=== PATIENT | female | born 2000 | race American Indian/Alaskan Native ===

== ENCOUNTER 2020-06-21 21:11 | Outpatient (CLI) | payer MEDICAID, OTHER ==
[2020-06-21] MEDS ORDERED: LACTATED RINGERS 1,000 ML IV ONE (21:39)
[2020-06-21 22:06] LABS: Bilirubin,Urine NEG (Negative); Blood,Urine NEG (Negative); Color,Urine Yellow (Yellow); Mucus,Urine FEW /HPF; Urobilinogen,Urine < 2.0 mg/dL (<2.0); WBC,Urine < 1.0 /HPF (0.0-6.0)
[2020-06-21 22:13] LABS: Amphetamine Screen,Urine Negative; Benzodiazepines Screen,Urine Negative; Cannabinoid Screen,Urine Negative; Cocaine Screen,Urine Negative; Methadone Screen,Urine Negative; Opiate Screen,Urine Negative
[2020-06-21 22:14] VITALS: BP 119/58
== END 2020-06-21 22:59 | disposition home or self-care (01) ==
LOC: TRG 21:11 → APU 21:33 → TRG 22:59
PROVIDERS: ATTEND Obstetrics & Gynecology
DX: O42.913 Preterm premature rupture of membranes, unspecified as to length of time between rupture and onset of labor, third trimester (principal); Z3A.31 31 weeks gestation of pregnancy
CPT/HCPCS: 36415; 80307; 81001; 84112

== ENCOUNTER 2020-09-02 08:55 | Inpatient (IN) | payer OTHER ==
[2020-09-02] MEDS ORDERED: MINERAL OIL 30 ML ORAL LIQD PO PRN (10:30)
[2020-09-02] MEDS ORDERED: METHYLERGONOVINE MALEATE 0.2 MG/ML VIAL IM PRN (11:00)
[2020-09-02] MEDS ORDERED: fentaNYL 100 MCG/2 ML INJ IV PRN (11:00)
[2020-09-02] MEDS ORDERED: TERBUTALINE 1 MG/1 ML INJ SUB-Q PRN (11:00)
[2020-09-02] MEDS ORDERED: ePHEDrine SULFATE 50 MG/1 ML INJ IV PRN ×2 (11:00→21:02)
[2020-09-02] MEDS ORDERED: NALOXONE 0.4 MG/1 ML INJ IV PRN (11:00)
[2020-09-02] MEDS ORDERED: miSOPROStol 200 MCG TAB PR PRN (11:00)
[2020-09-02] MEDS ORDERED: OXYTOCIN 10 UNIT/1 ML INJ IM PRN (11:00)
[2020-09-02] MEDS ORDERED: AMPICILLIN/NS 2 GM/100 ML 2 GM/100 ML BAG IV SCH (11:00)
[2020-09-02] MEDS ORDERED: LOPERAMIDE 2 MG CAP PO PRN (11:00)
[2020-09-02] MEDS ORDERED: OXYTOCIN DRIP 30 UNITS/500 ML BAG IV SCH (11:00)
[2020-09-02] MEDS ORDERED: DINOPROSTONE 10 MG VAG SUPP VG SCH (11:00)
[2020-09-02] MEDS ORDERED: ONDANSETRON 4 MG/2 ML INJ IV PRN (11:00)
[2020-09-02] MEDS ORDERED: LIDOCAINE (2%) 20 MG/1 ML VIAL 20 ML MDV INFILTRATI SCH (11:00)
[2020-09-02] MEDS ORDERED: BUTORPHANOL 2 MG/1 ML INJ IV PRN (11:00)
[2020-09-02] MEDS ORDERED: CARBOPROST TROMETHAMINE 250 MCG/1 ML INJ IM PRN (11:00)
[2020-09-02 11:05] LABS: Hematocrit 34.7 % (30.3-42.9); Hemoglobin 11.6 gm/dl (10.1-14.3); Mean Corpuscular HGB Conc 33 % (30-34); Mean Corpuscular Volume 86 fl (79-97); Platelet Count 242 K/mm3 (140-440); Red Blood Count 4.03 M/mm3 (3.65-5.03); Red Cell Distribution Width 13.9 % (13.2-15.2)
[2020-09-02] MEDS: LACTATED RINGERS 1,000 ML IV SCH ×2 (16:09→19:28)
--- NOTE | 2020-09-02 19:04 | History and Physical Report ---
History of Present Illness Date of examination: 09/02/20 Date of admission: 09/02/20 08:55 Chief complaint: I am here to be induced. History of present illness: Patient is a 20-year-old 1 para 0 with EDC 08/23/2020. She presents today for induction of labor secondary to postdates. Her course has been uncomplicated. She started care with [facility] at 12 weeks. All labs have been negative. She is GBS positive Past History Past Medical History: no pertinent history Past Surgical History: no surgical history Family/Genetic History: none Social history: single - Obstetrical History Expected Date of Delivery: 08/23/20 Actual Gestation: 41 Week(s) 3 Day(s) : 1 Medications and Allergies Allergies Allergy/AdvReac Type Severity Reaction Status Date / Time No Known Allergies Allergy Verified 06/21/20 21:35 Home Medications Medication Instructions Recorded Confirmed Last Taken Type One Daily Tablet 1 tab PO DAILY 09/02/20 09/02/20 09/02/20 History Active Meds: Active Medications Butorphanol Tartrate (Butorphanol 2 Mg/1 Ml Inj) 2 mg IV Q2H PRN PRN Reason: Pain , Severe (7-10) Last Admin: 09/02/20 15:32 Dose: 2 mg Documented by: Carboprost Tromethamine (Carboprost Tromethamine 250 Mcg/1 Ml Inj) 250 mcg IM ONCE PRN PRN Reason: Uterine Bleeding Dinoprostone (Dinoprostone 10 Mg Vag Supp) 10 mg VG ONCE MAGED Stop: 09/03/20 10:59 Last Admin: 09/02/20 11:52 Dose: 10 mg Documented by: Ephedrine Sulfate (Ephedrine Sulfate 50 Mg/1 Ml Inj) 10 mg IV Q2M PRN PRN Reason: Hypotension Fentanyl (Fentanyl 100 Mcg/2 Ml Inj) 100 mcg IV Q2H PRN PRN Reason: Pain,Severe (7-10) LABOR PAIN Lactated Ringer's (Lactated Ringers) 1,000 mls @ 125 mls/hr IV DIRECT MAGED Last Admin: 09/02/20 16:09 Dose: 125 mls/hr Documented by: Oxytocin/Sodium Chloride (Pitocin/Ns 30 Unit/500ml) 30 units in 500 mls @ 40 mls/hr IV TITR MAGED; Protocol Ampicillin Sodium (Ampicillin/Ns 1 Gm/50 Ml) 1 gm in 50 mls @ 100 mls/hr IV Q4H MAGED; Protocol Lidocaine (Lidocaine (2%) 20 Mg/1 Ml Vial 20 Ml Mdv) 20 ml INFILTRATI ONCE MAGED Stop: 09/03/20 10:59 Loperamide HCl (Loperamide 2 Mg Cap) 2 mg PO ONCE PRN PRN Reason: give with Hemabate Methylergonovine Maleate (Methylergonovine Maleate 0.2 Mg/Ml Vial) 0.2 mg IM ONCE PRN PRN Reason: Uterine Bleeding Mineral Oil (Mineral Oil 30 Ml Oral Liqd) 30 ml PO QHS PRN PRN Reason: Constipation Misoprostol (Misoprostol 200 Mcg Tab) 800 mcg IN ONCE PRN PRN Reason: Uterine Bleeding Naloxone HCl (Naloxone 0.4 Mg/1 Ml Inj) 0.1 mg IV Q2MIN PRN PRN Reason: Res Rate </= 8 or 02 SAT < 92% Ondansetron HCl (Ondansetron 4 Mg/2 Ml Inj) 4 mg IV Q8H PRN PRN Reason: Nausea And Vomiting Oxytocin (Oxytocin 10 Unit/1 Ml Inj) 10 unit IM ONCE PRN PRN Reason: Uterine Bleeding Terbutaline Sulfate (Terbutaline 1 Mg/1 Ml Inj) 0.25 mg SUB-Q ONCE PRN PRN Reason: Hyperstimulation/Hypertonicity Review of Systems All systems: negative Genitourinary: pelvic pain - Vital Signs Vital signs: Vital Signs Pulse BP Pulse Ox 101 H 117/62 98 09/02/20 09:27 09/02/20 09:27 09/02/20 09:27 Temp Pulse Resp BP Pulse Ox 98.8 F 83 18 136/83 98 09/02/20 16:23 09/02/20 18:57 09/02/20 16:23 09/02/20 18:11 09/02/20 18:57 - Physical Exam Breasts: Cardiovascular: Regular rate, Normal S1, Normal S2 Lungs: Positive: Clear to auscultation, Normal air movement Abdomen: Positive: normal appearance, soft, normal bowel sounds. Negative: distention, tenderness Genitourinary (Female): Positive: normal external genitalia, normal perenium Vulva: both: normal Vagina: Positive: normal moisture. Negative: discharge Cervix: Negative: lesion, discharge Uterus: Positive: normal size, normal contour Adnexa: both: normal Anus/Rectum: Positive: normal perianal skin, heme negative. Negative: rectal mass, hemorrhoids Extremities: Deep Tendon Reflex Grade: Normal +2 - Obstetrical FHR: auscultation normal Cervical Dilatation: 0 Cervical Effacement Percentage: 30 station: -3 Uterine Contraction Pattern: Absent Results Result Diagrams: 09/02/20 09:57 All other labs normal. Assessment and Plan IUP at 41 and 3 here for induction of labor. Admit for Cervidil. When removed we will begin Pitocin. Will treat with ampicillin for GBS status. Anticipate .
--- NOTE | 2020-09-02 21:00 | Anesthesia Consultation ---
Anesthesia Consult and Med Hx Date of service: 09/02/20 - Airway Anesthetic Teeth Evaluation: Good ROM Head & Neck: Adequate Mental/Hyoid Distance: Adequate Mallampati Class: Class II Intubation Access Assessment: Probably Good - Pulmonary Exam CTA: Yes - Cardiac Exam Cardiac Exam: RRR - Pre-Operative Health Status ASA Pre-Surgery Classification: ASA3 Proposed Anesthetic Plan: Epidural - Pulmonary Hx Smoking: Yes Hx Asthma: No COPD: No Hx Pneumonia: No - Cardiovascular System Hx Hypertension: No - Central Nervous System Hx Seizures: No Hx Psychiatric Problems: No - Endocrine Hx Renal Disease: No Hx End Stage Renal Disease: No Hx Hypothyroidism: No Hx Hyperthyroidism: No - Hematic Hx Anemia: No Hx Sickle Cell Disease: No - Other Systems Hx Alcohol Use: No Hx Obesity: Yes
[2020-09-02] MEDS ORDERED: NALOXONE 2 MG/2 ML INJ IV PRN (21:02)
--- NOTE | 2020-09-02 21:02 | Progress Note ---
Labor Epidural - Labor Epidural Start Time: 20:44 Stop Time: 20:50 Performed by:: BRYSON RIVAS Procedure: Patient is requesting epidural for labor pain. H&P, and labs reviewed. Procedure explained, questions answered, consent obtained. Patient in sitting position with blood pressure cuff and pulse ox on and working. Timeout performed immediately before start of procedure. Sterile chlorahexadine 0.5% prep/drape. 3 mL 1% lidocaine skin wheal at L[3]-L[4]. 18-gauge morphCARDtead epidural needle advanced to [id number] with saline at 9 cm. 27-gauge spinal needle advanced until clear, free-flowing CSF. Intrathecal dexmedetomidine [5] mcg administered and needle removed. Epidural catheter advanced to 15 cm, positive aspiration for blood, L2-3 positive dawn saline 9 cm, catheter advanced to 15 cm, negative aspiration for blood and csf, negative test dose 3 ml 1.5% lidocaine with epinephrine. Sterile steri-strips and tegaderm applied, followed by tape reinforcement. Patient tolerated procedure well.
[2020-09-02] MEDS: AMPICILLIN/NS 1 GM/50 ML 1 GM/50 ML BAG IV SCH (21:20)
[2020-09-02] MEDS: fentaNYL-BUPIV 2 MCG/ML-0.125% 200 MCG/100 ML BAG EPIDURAL SCH (22:07)
[2020-09-03] MEDS: AMPICILLIN/NS 1 GM/50 ML 1 GM/50 ML BAG IV SCH ×3 (04:49→13:18)
[2020-09-03] MEDS: fentaNYL-BUPIV 2 MCG/ML-0.125% 200 MCG/100 ML BAG EPIDURAL SCH ×2 (06:27→13:55)
--- NOTE | 2020-09-03 08:14 | Progress Note ---
Subjective - Subjective Date of service: 09/03/20 Interval history: AROM clear fluid cervix 5cm/100%/-2 FHT Category 1 [place]:Q5 minutes Maternal/ well being reassuring Dwaine Moreland MD Objective - Vital Signs Vital Signs: Vital Signs - 12hr 09/02/20 09/02/20 09/02/20 20:17 20:22 20:27 Temperature 98.8 F Pulse Rate 81 78 81 Respiratory 16 Rate Blood Pressure Blood Pressure 105/56 [Right] O2 Sat by Pulse 98 99 100 Oximetry 09/02/20 09/02/20 09/02/20 20:28 20:32 20:37 Temperature Pulse Rate 65 81 90 Respiratory Rate Blood Pressure Blood Pressure [Right] O2 Sat by Pulse 86 98 98 Oximetry 09/02/20 09/02/20 09/02/20 20:39 20:42 20:46 Temperature Pulse Rate 100 H 90 73 Respiratory Rate Blood Pressure Blood Pressure [Right] O2 Sat by Pulse 90 99 90 Oximetry 09/02/20 09/02/20 09/02/20 20:47 20:50 20:52 Temperature Pulse Rate 94 H 85 83 Respiratory Rate Blood Pressure 144/88 Blood Pressure [Right] O2 Sat by Pulse 100 99 Oximetry 09/02/20 09/02/20 09/02/20 20:53 20:55 20:57 Temperature Pulse Rate 85 84 Respiratory Rate Blood Pressure 140/65 139/73 Blood Pressure [Right] O2 Sat by Pulse 98 Oximetry 09/02/20 09/02/20 09/02/20 21:02 21:05 21:07 Temperature Pulse Rate 78 80 78 Respiratory Rate Blood Pressure 124/57 130/61 Blood Pressure [Right] O2 Sat by Pulse 98 99 Oximetry 09/02/20 09/02/20 09/02/20 21:08 21:11 21:12 Temperature Pulse Rate 75 72 68 Respiratory Rate Blood Pressure 106/66 110/66 Blood Pressure [Right] O2 Sat by Pulse 98 Oximetry 09/02/20 09/02/20 09/02/20 21:14 21:17 21:20 Temperature Pulse Rate 72 79 70 Respiratory Rate Blood Pressure 118/58 133/58 Blood Pressure [Right] O2 Sat by Pulse 99 Oximetry 09/02/20 09/02/20 09/02/20 21:22 21:25 21:27 Temperature Pulse Rate 72 75 78 Respiratory Rate Blood Pressure 132/60 Blood Pressure [Right] O2 Sat by Pulse 98 98 Oximetry 09/02/20 09/02/20 09/02/20 21:32 21:37 21:42 Temperature Pulse Rate 77 70 71 Respiratory Rate Blood Pressure Blood Pressure [Right] O2 Sat by Pulse 99 98 99 Oximetry 09/02/20 09/02/20 09/02/20 21:47 21:52 21:55 Temperature Pulse Rate 74 70 69 Respiratory Rate Blood Pressure 125/65 Blood Pressure [Right] O2 Sat by Pulse 98 99 Oximetry 09/02/20 09/02/20 09/02/20 21:57 22:02 22:07 Temperature Pulse Rate 68 63 70 Respiratory Rate Blood Pressure Blood Pressure [Right] O2 Sat by Pulse 100 99 98 Oximetry 09/02/20 09/02/20 09/02/20 22:12 22:17 22:22 Temperature Pulse Rate 71 62 63 Respiratory Rate Blood Pressure Blood Pressure [Right] O2 Sat by Pulse 97 100 99 Oximetry 09/02/20 09/02/20 09/02/20 22:23 22:27 22:32 Temperature Pulse Rate 61 64 68 Respiratory Rate Blood Pressure 129/77 Blood Pressure [Right] O2 Sat by Pulse 99 99 Oximetry 09/02/20 09/02/20 09/02/20 22:37 22:42 22:47 Temperature Pulse Rate 63 64 62 Respiratory Rate Blood Pressure Blood Pressure [Right] O2 Sat by Pulse 99 99 100 Oximetry 09/02/20 09/02/20 09/02/20 22:52 22:53 22:57 Temperature Pulse Rate 66 68 61 Respiratory Rate Blood Pressure 123/62 Blood Pressure [Right] O2 Sat by Pulse 100 100 Oximetry 09/02/20 09/02/20 09/02/20 23:02 23:07 23:12 Temperature Pulse Rate 61 68 65 Respiratory Rate Blood Pressure Blood Pressure [Right] O2 Sat by Pulse 100 99 100 Oximetry 09/02/20 09/02/20 09/02/20 23:17 23:22 23:23 Temperature Pulse Rate 61 70 68 Respiratory Rate Blood Pressure 114/61 Blood Pressure [Right] O2 Sat by Pulse 100 100 Oximetry 09/02/20 09/02/20 09/02/20 23:27 23:32 23:37 Temperature Pulse Rate 64 68 68 Respiratory Rate Blood Pressure Blood Pressure [Right] O2 Sat by Pulse 100 100 100 Oximetry 09/02/20 09/02/20 09/02/20 23:42 23:47 23:52 Temperature Pulse Rate 64 70 65 Respiratory Rate Blood Pressure Blood Pressure [Right] O2 Sat by Pulse 98 99 99 Oximetry 09/02/20 09/02/20 09/03/20 23:54 23:57 00:02 Temperature Pulse Rate 63 63 81 Respiratory Rate Blood Pressure 119/67 Blood Pressure [Right] O2 Sat by Pulse 99 99 Oximetry 09/03/20 09/03/20 09/03/20 00:07 00:12 00:17 Temperature Pulse Rate 68 94 H 72 Respiratory Rate Blood Pressure Blood Pressure [Right] O2 Sat by Pulse 100 98 99 Oximetry 09/03/20 09/03/20 09/03/20 00:22 00:23 00:27 Temperature Pulse Rate 95 H 87 95 H Respiratory Rate Blood Pressure 126/77 Blood Pressure [Right] O2 Sat by Pulse 100 98 Oximetry 09/03/20 09/03/20 09/03/20 00:32 00:37 00:42 Temperature Pulse Rate 97 H 84 89 Respiratory Rate Blood Pressure Blood Pressure [Right] O2 Sat by Pulse 99 99 100 Oximetry 09/03/20 09/03/20 09/03/20 00:47 00:52 00:55 Temperature Pulse Rate 94 H 85 93 H Respiratory Rate Blood Pressure Blood Pressure [Right] O2 Sat by Pulse 99 98 92 Oximetry 09/03/20 09/03/20 09/03/20 00:57 01:02 01:07 Temperature Pulse Rate 94 H 78 73 Respiratory Rate Blood Pressure Blood Pressure [Right] O2 Sat by Pulse 99 98 98 Oximetry 09/03/20 09/03/20 09/03/20 01:12 01:17 01:22 Temperature Pulse Rate 85 79 84 Respiratory Rate Blood Pressure Blood Pressure [Right] O2 Sat by Pulse 98 99 97 Oximetry 09/03/20 09/03/20 09/03/20 01:23 01:27 01:32 Temperature Pulse Rate 79 77 82 Respiratory Rate Blood Pressure 134/79 Blood Pressure [Right] O2 Sat by Pulse 99 99 Oximetry 09/03/20 09/03/20 09/03/20 01:37 01:42 01:47 Temperature Pulse Rate 69 81 74 Respiratory Rate Blood Pressure Blood Pressure [Right] O2 Sat by Pulse 99 99 98 Oximetry 09/03/20 09/03/20 09/03/20 01:52 01:54 01:57 Temperature Pulse Rate 81 70 77 Respiratory Rate Blood Pressure 143/92 Blood Pressure [Right] O2 Sat by Pulse 98 100 Oximetry 09/03/20 09/03/20 09/03/20 02:02 02:07 02:12 Temperature Pulse Rate 85 78 80 Respiratory Rate Blood Pressure Blood Pressure [Right] O2 Sat by Pulse 100 99 100 Oximetry 09/03/20 09/03/20 09/03/20 02:17 02:22 02:24 Temperature Pulse Rate 72 69 85 Respiratory Rate Blood Pressure 135/78 Blood Pressure [Right] O2 Sat by Pulse 99 99 Oximetry 09/03/20 09/03/20 09/03/20 02:27 02:32 02:37 Temperature Pulse Rate 78 73 77 Respiratory Rate Blood Pressure Blood Pressure [Right] O2 Sat by Pulse 99 100 99 Oximetry 09/03/20 09/03/20 09/03/20 02:42 02:47 02:52 Temperature Pulse Rate 78 82 75 Respiratory Rate Blood Pressure Blood Pressure [Right] O2 Sat by Pulse 99 99 100 Oximetry 09/03/20 09/03/20 09/03/20 02:53 02:57 03:02 Temperature 98.2 F Pulse Rate 77 79 75 Respiratory Rate Blood Pressure 134/82 Blood Pressure [Right] O2 Sat by Pulse 100 99 Oximetry 09/03/20 09/03/20 09/03/20 03:07 03:12 03:17 Temperature Pulse Rate 79 74 85 Respiratory Rate Blood Pressure Blood Pressure [Right] O2 Sat by Pulse 99 99 100 Oximetry 09/03/20 09/03/20 09/03/20 03:22 03:24 03:27 Temperature Pulse Rate 75 74 75 Respiratory Rate Blood Pressure 137/80 Blood Pressure [Right] O2 Sat by Pulse 99 99 Oximetry 09/03/20 09/03/20 09/03/20 03:32 03:37 03:42 Temperature Pulse Rate 73 73 75 Respiratory Rate Blood Pressure Blood Pressure [Right] O2 Sat by Pulse 100 99 100 Oximetry 09/03/20 09/03/20 09/03/20 03:47 03:52 03:53 Temperature Pulse Rate 78 78 82 Respiratory Rate Blood Pressure 149/92 Blood Pressure [Right] O2 Sat by Pulse 99 100 Oximetry 06/09/03/20 09/03/20 03:57 04:02 04:07 Temperature Pulse Rate 80 76 78 Respiratory Rate Blood Pressure Blood Pressure [Right] O2 Sat by Pulse 100 100 99 Oximetry 09/03/20 09/03/20 09/03/20 04:12 04:17 04:22 Temperature Pulse Rate 75 77 67 Respiratory Rate Blood Pressure Blood Pressure [Right] O2 Sat by Pulse 100 100 100 Oximetry 09/03/20 09/03/20 09/03/20 04:23 04:27 04:32 Temperature Pulse Rate 80 77 72 Respiratory Rate Blood Pressure 138/81 Blood Pressure [Right] O2 Sat by Pulse 97 98 Oximetry 09/03/20 09/03/20 09/03/20 04:37 04:42 04:47 Temperature Pulse Rate 72 74 71 Respiratory Rate Blood Pressure Blood Pressure [Right] O2 Sat by Pulse 99 98 99 Oximetry 09/03/20 09/03/20 09/03/20 04:52 04:54 04:57 Temperature Pulse Rate 80 90 77 Respiratory Rate Blood Pressure 125/89 Blood Pressure [Right] O2 Sat by Pulse 99 98 Oximetry 09/03/20 09/03/20 09/03/20 05:02 05:07 05:12 Temperature Pulse Rate 79 77 74 Respiratory Rate Blood Pressure Blood Pressure [Right] O2 Sat by Pulse 98 99 97 Oximetry 09/03/20 09/03/20 09/03/20 05:17 05:22 05:24 Temperature Pulse Rate 85 68 71 Respiratory Rate Blood Pressure 128/76 Blood Pressure [Right] O2 Sat by Pulse 97 98 Oximetry 09/03/20 09/03/20 09/03/20 05:27 05:32 05:37 Temperature Pulse Rate 74 74 71 Respiratory Rate Blood Pressure Blood Pressure [Right] O2 Sat by Pulse 99 98 98 Oximetry 09/03/20 09/03/20 09/03/20 05:42 05:47 05:52 Temperature Pulse Rate 74 76 84 Respiratory Rate Blood Pressure Blood Pressure [Right] O2 Sat by Pulse 98 98 98 Oximetry 09/03/20 09/03/20 09/03/20 05:55 05:57 06:02 Temperature Pulse Rate 86 74 71 Respiratory Rate Blood Pressure 131/91 Blood Pressure [Right] O2 Sat by Pulse 99 98 Oximetry 09/03/20 09/03/20 09/03/20 06:07 06:12 06:17 Temperature Pulse Rate 69 71 72 Respiratory Rate Blood Pressure Blood Pressure [Right] O2 Sat by Pulse 98 97 98 Oximetry 09/03/20 09/03/20 09/03/20 06:22 06:24 06:27 Temperature Pulse Rate 88 72 83 Respiratory Rate Blood Pressure 127/72 Blood Pressure [Right] O2 Sat by Pulse 98 99 Oximetry 09/03/20 09/03/20 09/03/20 06:32 06:37 06:42 Temperature Pulse Rate 76 73 71 Respiratory Rate Blood Pressure Blood Pressure [Right] O2 Sat by Pulse 100 100 99 Oximetry 09/03/20 09/03/20 09/03/20 06:47 06:52 06:54 Temperature Pulse Rate 69 68 73 Respiratory Rate Blood Pressure 125/69 Blood Pressure [Right] O2 Sat by Pulse 100 99 Oximetry 09/03/20 09/03/20 09/03/20 06:57 07:02 07:07 Temperature Pulse Rate 77 74 72 Respiratory Rate Blood Pressure Blood Pressure [Right] O2 Sat by Pulse 99 99 99 Oximetry 09/03/20 09/03/20 09/03/20 07:12 07:17 07:22 Temperature Pulse Rate 79 76 85 Respiratory Rate Blood Pressure Blood Pressure [Right] O2 Sat by Pulse 99 99 99 Oximetry 09/03/20 09/03/20 09/03/20 07:24 07:27 07:32 Temperature Pulse Rate 79 76 77 Respiratory Rate Blood Pressure 134/80 Blood Pressure [Right] O2 Sat by Pulse 99 99 Oximetry 09/03/20 09/03/20 09/03/20 07:37 07:42 07:47 Temperature Pulse Rate 78 71 79 Respiratory Rate Blood Pressure Blood Pressure [Right] O2 Sat by Pulse 99 98 99 Oximetry 09/03/20 09/03/20 09/03/20 07:52 07:53 07:57 Temperature Pulse Rate 77 75 76 Respiratory Rate Blood Pressure 131/82 Blood Pressure [Right] O2 Sat by Pulse 99 99 Oximetry 09/03/20 09/03/20 08:02 08:07 Temperature Pulse Rate 81 88 Respiratory Rate Blood Pressure Blood Pressure [Right] O2 Sat by Pulse 97 97 Oximetry - Labs Labs: Laboratory Results - last 24 hr 09/02/20 09/02/20 09/02/20 09:20 09:57 09:57 WBC 6.8 RBC 4.03 Hgb 11.6 Hct 34.7 MCV 86 MCH 29 MCHC 33 RDW 13.9 Plt Count 242 Syphilis IgG Antibody Coronavirus (PCR) Negative Blood Type O POSITIVE Antibody Screen Negative 09/02/20 09:57 WBC RBC Hgb Hct MCV MCH MCHC RDW Plt Count Syphilis IgG Antibody Nonreactive Coronavirus (PCR) Blood Type Antibody Screen
[2020-09-03] MEDS ORDERED: OXYTOCIN DRIP 30 UNITS/500 ML BAG IV SCH (10:00)
[2020-09-03] MEDS: LACTATED RINGERS 1,000 ML IV SCH (11:22)
[2020-09-03] MEDS ORDERED: LIDOCAINE (2%) 20 MG/1 ML VIAL 20 ML MDV INFILTRATI ONE (17:04)
[2020-09-03] MEDS ORDERED: ceFAZolin/Water 2 GM/20 ML 2 GM/20 ML SYRINGE IV ONE (17:08)
[2020-09-03] MEDS ORDERED: MORPHINE 2 MG/1 ML INJ ONE (17:23)
[2020-09-03] MEDS ORDERED: MORPHINE 2 MG/1 ML INJ IV ONE (17:24)
[2020-09-03] MEDS ORDERED: LIDOCAINE MPF (2%) 20 MG/1 ML VIAL 5 ML ONE ×3 (17:35→18:28)
--- NOTE | 2020-09-03 17:47 | Anesthesia Day of Surgery ---
Anesthesia Day of Surgery - Day of Surgery Patient Examined: Yes Patient H&P Reviewed: Yes Patient is NPO: Yes Beta Blockers: No Cardiac Clearance: No Pulmonary Clearance: No Keon's Test: N/A
[2020-09-03] MEDS ORDERED: SODIUM CHLORIDE 0.9% 500 ML 500 ML IV NR (17:49)
--- NOTE | 2020-09-03 17:49 | Procedure Note ---
OB Delivery Note - Delivery Date of Delivery: 09/03/20 Surgeon: KENNETH SALINAS Estimated blood loss: other (600ml) - Vaginal Delivery position: OA Intrapartum events: other(please specify) (fourth degree episiotomy with extension to posterior fornix) Delivery monitor: external FHT, external uterine Route of delivery: Delivery placenta: manual Delivery cord: 3 umbilical vessels Episiotomy: midline Delivery laceration: 4th degree Delivery repair: other (repair in OR under spinal and local anesthesia) Delivery comments: Patient pushed to deliver a viable male over a midline episiotomy with a fourth degree extension. Position direct OP, no nuchal cord. The remainder of the delivery was atraumatic with spontaneous cry at delivery. Baby placed on maternal abdomen with delayed cord clamping around 60 seconds. Cord clamped and cut and baby handed to waiting NICU staff. Intact placenta with three-vessel cord delivered manually. Manual extraction second to acute blood loss from vaginal laceration. Attempt of fourth degree repair in the room was unsuccessful second to poor lighting and patient discomfort. Anesthesia was notified and patient taken to the OR for repair see brief op n ote. All sponge needle instrument counts were correct x2. Total EBL during delivery 600 mL. Weight 4129gms 8/9 Dwaine Salinas MD
[2020-09-03] MEDS ORDERED: ceFAZolin/STERILE WATER 2 GM/20 ML SYRINGE IV NR (18:00)
--- NOTE | 2020-09-03 19:00 | Post Operative Note ---
Pre-op diagnosis: Midline Episiotomy with fourth degree extension Post-op diagnosis: same Findings: Multiple superficial vaginal lacerations with a midline episiotomy with fourth degree extension requiring repair. Procedure: Repair of fourth degree vaginal laceration with 2-0 Vicryl on a CTX needle. The apex of the laceration was identified and the laceration repaired in layers. The perineum closed with interrupted sutures of 2-0 Vicryl. The rectum confirmed patent at the conclusion of the procedure. Patient remained hemodynamically stable throughout with EBL 150 mL in the OR. Sponge needle and instrument counts are correct x2. Mom to the floor for recovery. Anesthesia: local, epidural Surgeon: KENNETH SALINAS Estimated blood loss: other (150ml) Pathology: none Condition: stable Disposition: floor
[2020-09-03] MEDS ORDERED: ONDANSETRON 4 MG/2 ML INJ IV PRN (19:34)
[2020-09-03] MEDS ORDERED: PROMETHAZINE 25 MG RECT SUPP PR PRN (19:34)
[2020-09-03] MEDS ORDERED: WITCH HAZEL/ GLYCERIN PAD TP PRN (19:34)
[2020-09-03] MEDS ORDERED: PROMETHAZINE 25 MG TAB PO PRN (19:34)
[2020-09-03] MEDS ORDERED: oxyCODONE /ACETAMINOPHEN 5-325MG TAB PO PRN (19:34)
[2020-09-03] MEDS ORDERED: diphenhydrAMINE 25 MG CAP PO PRN (19:34)
[2020-09-03] MEDS ORDERED: KETOROLAC 30 MG/1 ML INJ IV PRN (19:34)
[2020-09-03] MEDS ORDERED: ACETAMINOPHEN 325 MG TAB PO PRN (19:34)
[2020-09-03] MEDS ORDERED: MAGNESIUM HYDROXIDE (MOM) ORAL LIQD UDC PO PRN (19:34)
[2020-09-03] MEDS ORDERED: LANOLIN/ZINC/DIMETHICONE (LANSINOH) 7 GM TP PRN (19:34)
--- NOTE | 2020-09-03 21:15 | Post Anesthesia Evaluation ---
- Post Anesthesia Evaluation Patient Participated: Yes Airway Patent: Yes Stable Respiratory Function: Yes Nausea/Vomiting: No Temp > 96.8F: Yes Pain Manageable: Yes Adequeate Hydration: Yes Anesthesia Complications: No Block Receding Appropriately: Yes Patient on Ventilator: No
[2020-09-03] MEDS: HYDROcodone/ACETAMINOPHEN 5-325 MG TAB PO PRN (23:49)
[2020-09-04] MEDS: IBUPROFEN 600 MG TAB PO SCH ×3 (05:07→18:16)
[2020-09-04 09:43] LABS: Hematocrit 22.6 % (30.3-42.9); Hemoglobin 7.3 gm/dl (10.1-14.3)
[2020-09-04] MEDS: LACTATED RINGERS 1,000 ML IV SCH (11:40)
--- NOTE | 2020-09-04 18:12 | Progress Note ---
Assessment and Plan A: PPD#1 s/p at term 4th degree laceration Morbid Obesity P: Routine care Monitor anemia Stool softener scheduled Subjective - Subjective Date of service: 09/04/20 Principal diagnosis: s/p at term, 4th degree laceration repair Interval history: Pt feeling well. Receiving one unit of PRBCs presently. No complaints. Patient reports: appetite normal, voiding normally, pain well controlled, ambulating normally (minimally ) Ruby: doing well Objective - Vital Signs Latest vital signs: Vital Signs Temp Pulse Resp BP BP BP Pulse Ox 09/04/20 17:11 105 H 17 134/66 98 09/04/20 16:36 98.0 F 87 17 132/71 132/71 97 09/04/20 16:00 99 H 16 106/59 100 09/04/20 15:47 107 H 16 120/61 98 09/04/20 15:36 105 H 16 113/59 97 09/04/20 11:57 98.2 F 87 16 121/67 99 09/04/20 08:05 97.9 F 89 16 112/61 97 09/04/20 05:03 98.5 F 109 H 20 97/60 100 09/03/20 23:46 99.4 F 115 H 20 109/58 100 09/03/20 21:35 99.2 F 97 H 18 94/53 98 09/03/20 20:19 96 H 99 09/03/20 20:14 103 H 99 09/03/20 20:09 99 H 98 09/03/20 20:04 94 H 98 09/03/20 20:03 94 H 92 09/03/20 19:59 91 H 100 09/03/20 19:54 99 H 100 09/03/20 19:53 97 H 116/58 09/03/20 19:49 87 100 09/03/20 19:45 98.6 F 86 18 132/77 100 09/03/20 19:44 86 100 09/03/20 19:39 83 100 09/03/20 19:34 82 132/77 100 09/03/20 19:29 82 100 09/03/20 19:24 83 132/79 100 09/03/20 19:19 88 99 09/03/20 19:14 84 109/56 99 09/03/20 19:09 87 98 09/03/20 19:04 92 H 109/57 99 Intake and Output 09/04/20 09/04/20 09/04/20 06:59 14:59 22:59 Intake Total 480 0 Output Total 600 Balance -120 0 Intake: Oral 480 Blood Product 0 Leukoreduced Red Blood 0 Cells Unit [id number] Output: Urine 600 Void 600 Other: Total, Intake Amount 240 Total, Output Amount 400 # Voids Void 1 - Exam Breasts: Present: deferred Abdomen: Present: soft Uterus: Present: fundal height at umbilicus Extremities: Present: edema - Labs Labs: Abnormal lab results 09/02/20 09/04/20 Range/Units 09:57 08:00 Hgb 7.3 L D (10.1-14.3) gm/dl Hct 22.6 L D (30.3-42.9) % Crossmatch See Detail
[2020-09-04] MEDS: HYDROcodone/ACETAMINOPHEN 5-325 MG TAB PO PRN (22:23)
[2020-09-04] MEDS: DOCUSATE SODIUM 100 MG CAP PO SCH (22:23)
[2020-09-04 23:15] LABS: Hematocrit 25.9 % (30.3-42.9); Hemoglobin 8.7 gm/dl (10.1-14.3)
[2020-09-05] MEDS: DOCUSATE SODIUM 100 MG CAP PO SCH (10:17)
--- NOTE | 2020-09-05 11:03 | Progress Note ---
Assessment and Plan A: PPD#2 s/p at term 4th degree laceration Acute blood loss anemia s/p 1 unit PRBCs, currently asymptomatic Morbid Obesity P: Discharge today with follow up in 2 wks in the office. Subjective - Subjective Date of service: 09/05/20 Principal diagnosis: s/p at term, 4th degree laceration repair Interval history: Pt feels well and is asking to go home. She is able to walk without dizziness. Patient reports: appetite normal, voiding normally, pain well controlled, ambulating normally, no dizzy ambulation : doing well Objective - Vital Signs Latest vital signs: Vital Signs Temp Pulse Resp BP BP Pulse Ox 09/05/20 08:43 97.8 F 93 H 18 111/76 09/04/20 23:42 97.7 F 103 H 20 115/56 99 09/04/20 17:11 105 H 17 134/66 98 09/04/20 16:36 98.0 F 87 17 132/71 132/71 97 09/04/20 16:00 99 H 16 106/59 100 09/04/20 15:47 107 H 16 120/61 98 09/04/20 15:36 105 H 16 113/59 97 09/04/20 11:57 98.2 F 87 16 121/67 99 Intake and Output 09/04/20 09/05/20 09/05/20 22:59 06:59 14:59 Intake Total 610 240 Output Total 800 Balance -190 240 Intake: Oral 360 Intake, Free Water 240 Blood Product 250 Leukoreduced Red Blood 250 Cells Unit [id number] Output: Urine 800 Void 800 Other: Total, Intake Amount 360 Total, Output Amount 800 # Voids Void 2 - Exam Breasts: Present: deferred Abdomen: Present: soft (obese ) Extremities: Present: normal - Labs Labs: Abnormal lab results 09/02/20 09/04/20 Range/Units 09:57 22:57 Hgb 8.7 L (10.1-14.3) gm/dl Hct 25.9 L (30.3-42.9) % Crossmatch See Detail
--- NOTE | 2020-09-05 11:04 | Discharge Summary ---
Providers - Providers Date of Admission: 09/02/20 08:55 Date of discharge: 09/05/20 Attending physician: NEVA HUBBARD Primary care physician: MATT WING MD Hospitalization Reason for admission: induction of labor Delivery: Procedure details: Please see delivery note. Episiotomy: midline Laceration: 4th degree Other procedures: other (Repair of 4th degree laceraton in the OR) complications: transfusion Discharge diagnosis: IUP at term delivered baby: male Hospital course: This patient was admitted for induction of labor and went on to have a spontaneous vaginal delivery complicated by fourth degree perineal laceration repaired in the operative room. She also developed acute blood loss anemia and received 1 unit of packed red blood cells. By day #2 the patient met discharge criteria. She will follow-up in the office in 2 weeks for laceration check. Condition at discharge: Stable Disposition: [id number] TO HOME OR SELFCARE - Discharge Diagnoses (1) Term of male Status: Acute (2) Acute blood loss anemia Status: Acute (3) Fourth degree perineal laceration during delivery Status: Acute (4) Morbid obesity Status: Acute Plan - Discharge Medications Prescriptions: Ibuprofen [Motrin] 600 mg PO Q8H PRN #60 tablet PRN Reason: Pain oxyCODONE /ACETAMINOPHEN [Percocet 5/325] 1 tab PO Q6HR PRN #20 tablet PRN Reason: Pain - Provider Discharge Summary Activity: routine, no sex for 6 weeks, no heavy lifting 4 weeks, no strenuous exercise Diet: routine Instructions: routine Additional instructions: [] Smoking cessation referral if applicable(refer to patient education folder for contact #) [] Refer to [facility] Booklet Call your doctor immediately for: * Fever > 100.5 * Heavy vaginal bleeding ( >1 pad per hour) * Severe persistent headache * Shortness of breath * Reddened, hot, painful area to leg or breast * Drainage or odor from incision. * Keep incision clean and dry at all times and follow doctor's instructions regarding bathing/showering - Follow up plan Follow up: ARELIS MASCORRO CURBER [Advanced Practice Nurse] - 14 Days (please call to schedule your laceration check appt. Please call to schedule your son's circumcision before he is one month old. )
[2020-09-05 15:40] VITALS: BP 134/68
== END 2020-09-05 15:00 | disposition home or self-care (01) | DRG 775 ==
LOC: LD 08:55 → OB 09-03 21:30
PROVIDERS: ADMIT Obstetrics & Gynecology; ATTEND Obstetrics & Gynecology
PROC: 10E0XZZ Delivery of Products of Conception, External Approach (ICD-10-PCS; principal; 2020-09-03)
PROC: 0DQP0ZZ Repair Rectum, Open Approach (ICD-10-PCS; 2020-09-03)
PROC: 10907ZC Drainage of Amniotic Fluid, Therapeutic from Products of Conception, Via Natural or Artificial Opening (ICD-10-PCS; 2020-09-03)
PROC: 0W8NXZZ Division of Female Perineum, External Approach (ICD-10-PCS; 2020-09-03)
PROC: 3E0R3BZ Introduction of Anesthetic Agent into Spinal Canal, Percutaneous Approach (ICD-10-PCS; 2020-09-03)
PROC: 00HU33Z Insertion of Infusion Device into Spinal Canal, Percutaneous Approach (ICD-10-PCS; 2020-09-03)
PROC: 30233N1 Transfusion of Nonautologous Red Blood Cells into Peripheral Vein, Percutaneous Approach (ICD-10-PCS; 2020-09-04)
DX: O48.0 Post-term pregnancy (principal); Z3A.41 41 weeks gestation of pregnancy; O99.824 Streptococcus B carrier state complicating childbirth; Z37.0 Single live birth; Z20.822 Contact with and (suspected) exposure to COVID-19; D62 Acute posthemorrhagic anemia; O70.3 Fourth degree perineal laceration during delivery; O99.214 Obesity complicating childbirth; E66.01 Morbid (severe) obesity due to excess calories; O90.81 Anemia of the puerperium
CPT/HCPCS: 36415; 59200; 85014; 85018; 85027; 86592; 86850; 86900; 86901; 86920; 88307; 99211; G0378; G0463; J0290; J0595; J0690; J2590; J7120; P9016; U0003